=== PATIENT | female | born 1985 | race Caucasian/White ===

== ENCOUNTER → 2024-09-09 10:07 | Outpatient (REF) | payer OTHER, SELFPAY | LOC: HWWDC 10:07 | PROVIDERS: ATTENDING PHYSICIAN Nurse Practitioner | DX: T83.32XA Displacement of intrauterine contraceptive device, initial encounter (principal); Z12.31 Encounter for screening mammogram for malignant neoplasm of breast | CPT/HCPCS: 76830; 76856; 77063; 77067 ==